=== PATIENT | male | born 1935 | race Caucasian/White ===

== ENCOUNTER 2018-03-25 04:57 | Inpatient (IN) | payer OTHER ==
[2018-02-28 15:03] VITALS: BMI 28.0
--- NOTE | 2018-02-28 15:43 | PAT Medication Instructions ---
Service Date Feb 28, 2018. Current Home Medication List Acetaminophen (Tylenol Arthritis Ext Rel), 650 MG PO Q8H PRN for Pain Amlodipine (Norvasc), 10 MG PO QAM Folic Acid (Folic Acid), 1 MG PO QAM Pantoprazole (Protonix), 40 MG PO QAM Medication Instructions For Your Scheduled Surgery - Hold the following medications the morning of surgery: Folic Acid (Folic Acid), 1 MG PO QAM - Take the following medications the morning of surgery with a sip of water: Acetaminophen (Tylenol Arthritis Ext Rel), 650 MG PO Q8H PRN for Pain (if needed , can be taken up to four hours before surgery) Amlodipine (Norvasc), 10 MG PO QAM Pantoprazole (Protonix), 40 MG PO QAM If you have any questions please call us at [phone] or [phone] or [phone]
[2018-02-28 16:33] LABS: BASO % 0.2 %; BASO ABS # 0.01 K/uL (0-0.2); EOS % 0.2 %; EOS ABS # 0.01 K/uL (0-0.5); HEMATOCRIT 42.9 % (42-52); IG# 0.02 K/uL (0.00-0.02); LYMPH % 24.7 %; LYMPH ABS # 1.47 K/uL (1.2-3.4); MEAN CELL VOLUME 94.3 fL (80-100); MEAN PLATELET VOLUME 10.9 fL (7.4-10.4); MONO ABS # 2.62 K/uL (0.11-0.59); NEUT % 30.6 %; NEUT ABS # 1.83 K/uL (1.4-6.5); PLATELET COUNT 161 K/uL (130-400); RED CELL DISTRIBUTION WIDTH CV 13.4 % (11.5-14.5); RED CELL DISTRIBUTION WIDTH SD 46.4 fL (36.4-46.3); WHITE BLOOD COUNT 5.96 K/uL (4.8-10.8)
--- NOTE | 2018-02-28 16:33 | DIAGNOSTIC IMAGING REPORT ---
CHEST 2 VIEWS ROUTINE CLINICAL HISTORY: Preoperative evaluation. COMPARISON STUDY: Chest radiograph October 04, 2014. FINDINGS: Lung volumes are normal. No pneumothorax or pleural effusion is noted. There is no evidence for pulmonary edema. No consolidation is present. Cardiomediastinal silhouette is normal. Appearance of the chest is unchanged. IMPRESSION: No acute cardiopulmonary findings. Electronically signed by: Guerrero Sandoval M.D. 02/28/2018 4:32 PM Dictated Date/Time: 02/28/2018 4:31 PM
[2018-02-28 16:40] LABS: CALCIUM 9.4 mg/dl (8.5-10.1); CREATININE 0.74 mg/dl (0.60-1.40)
[2018-02-28 16:45] LABS: PTT PATIENT 30.6 SECONDS (21.0-31.0)
--- NOTE | 2018-03-24 07:43 | HISTORY & PHYSICAL EXAMINATION ---
DATE OF ADMISSION: 03/25/2018 CHIEF COMPLAINT: Primary osteoarthritis of the left hip. HISTORY OF PRESENT ILLNESS: Teo is a very pleasant 82-year-old male who has been dealing with a several year history of chronic increasing left hip pain. X-rays and clinical examination were diagnostic for primary osteoarthritis of the left hip. After failing conservative treatment, he elected to proceed with a left total hip arthroplasty. PAST MEDICAL HISTORY: Significant for bleeding gastric ulcer which was treated conservatively and then with Protonix 2 years ago and hypertension. PAST SURGICAL HISTORY: Significant for a right total hip arthroplasty in 1974, cataracts, sinus surgery, appendectomy, and hernia repair. ALLERGIES: None. MEDICATIONS: Amlodipine 10 mg daily, Protonix 40 mg daily, folic acid 1 mg daily, Tylenol Arthritis. FAMILY HISTORY: Significant for colon cancer in both his father and his brother. SOCIAL HISTORY: He is and lives alone, but his daughter lives nearby to take care of him. He has 3 or more drinks a day. He still likes to remain active. REVIEW OF SYSTEMS: He complains mostly of left hip and groin pain. All other pertinent review of systems are negative. PHYSICAL EXAMINATION: GENERAL: He is awake, alert, and orient x3. He is no apparent distress. He is very pleasant. HEENT: Pupils are equal, round, and reactive to light. Extraocular motions are intact. Oral mucosa is pink and moist. HEART: The heart is regular rate per radial pulse. LUNGS: The lungs francis symmetrically bilaterally with no audible breath sounds. ABDOMEN: The abdomen is soft, nontender, and nondistended. MUSCULOSKELETAL: On physical examination of his hip, he is able to walk independently, but does have a limp. He has a lot of tenderness to palpation in the left groin. He has range of motion about 90 degrees of flexion, 10 degrees of internal rotation, 30 degrees of external rotation with severe pain with forced internal rotation of his hip. His leg lengths are equal. DIAGNOSTIC DATA: X-rays of the left hip do show advanced osteoarthritis with [id number] articulation, joint space narrowing, and osteophyte formation. IMPRESSION: Advanced osteoarthritis of the left hip. PLAN: We will proceed with a left total hip arthroplasty. We will use aspirin postoperatively for DVT prophylaxis. He will likely be discharged with [facility] home health after his hospital stay.
[2018-03-25] VITALS (9 sets, daily range): BP systolic 131–175; BP diastolic 53–84; PULSE 67–96; TEMP 36.4–36.5; O2SAT 91–97; Ht 177.8 cm; Wt 89.2 kg
[~2018-03-25] VITALS: Ht 177.8 cm; Wt 89.2 kg
[~2018-03-25 04:57] MED LIST: ACET1TAB84 PO; AMLO-114 PO; FLV1 PO; PANT40TA PO
[2018-03-25] MEDS ORDERED: LACTATED RINGER'S 1000ML 1,000 ML IV SCH (06:00)
[2018-03-25] MEDS ORDERED: LACTATED RINGER'S 1000ML IV SCH (06:00)
[2018-03-25] MEDS ORDERED: ROPIVACAINE 5MG/ML 30 ML 150 MG, BUPIVACAINE 0.5% MPF INJ 30 ML, EpINEphrine HCL INJ 0.... INFIL SCH ×8 (06:00)
[2018-03-25] MEDS ORDERED: FAMOTIDINE 20 MG TAB PO SCH (06:00)
[2018-03-25] MEDS ORDERED: CEFAZOLIN 2000MG IV PUSH 15 ML IV SCH (06:00)
[2018-03-25] MEDS ORDERED: LACTATED RINGER'S 1000ML 500 ML IV SCH (06:00)
[2018-03-25] MEDS ORDERED: ACETAMINOPHEN 500 MG TAB PO SCH (06:00)
[2018-03-25] MEDS ORDERED: GABAPENTIN 300 MG CAP PO SCH (06:00)
[2018-03-25] MEDS ORDERED: MIDAZOLAM HCL 1 MG/ML 2ML VIAL ONE (06:27)
[2018-03-25] MEDS ORDERED: FENTANYL CITRATE INJ 50 MCG/1 ML 2 ML VIAL ONE (06:27)
[2018-03-25] MEDS ORDERED: BACITRACIN 50000 UNIT VIAL ONE (06:30)
[2018-03-25] MEDS: TRANEXAMIC ACID INJ 1,000 MG x 2 Bags IV SCH ×4 (06:30→06:33)
[2018-03-25] MEDS ORDERED: ORTHO JOINT ANESTHETIC ONE (06:30)
[2018-03-25] MEDS ORDERED: BUPIVACAINE 0.5 % 5 MG/1 ML PF 10ML VIAL ONE (06:32)
--- NOTE | 2018-03-25 06:44 | History & Physical Bridge Note ---
H&P Re-Evaluation Bridge Note: I have examined the patient, reviewed the History & Physical and in the interval since the performance of the History & Physical I have noted the following changes of clinical significance: No changes noted
[2018-03-25] MEDS ORDERED: PROPOFOL IV EMULSION 10 MG/ML 20 ML VIAL IV ONE ×2 (07:25→08:12)
--- NOTE | 2018-03-25 08:48 | DIAGNOSTIC IMAGING REPORT ---
L HIP UNILATERAL 1 VIEW HISTORY: 82 years-old Male LT ANTERIOR TOTAL status post left hip arthroplasty. Degenerative joint disease. COMPARISON: Left hip radiographs 01/26/2018 TECHNIQUE: 2 spot fluoroscopic images of the left hip were obtained utilizing 51.3 seconds fluoroscopy time FINDINGS: First image demonstrates interval resection of the left femoral head and neck. Prosthetic acetabular component appears to be in satisfactory alignment. Second image demonstrates placement of the femoral stem which is in satisfactory alignment without periprosthetic fracture. IMPRESSION: Left hip arthroplasty with satisfactory alignment. The above report was generated using voice recognition software. It may contain grammatical, syntax or spelling errors. Electronically signed by: Gerardo Triana M.D. 03/25/2018 8:47 AM Dictated Date/Time: 03/25/2018 8:46 AM
--- NOTE | 2018-03-25 08:58 | [facility] Post Operative Brief Note ---
Immediate Operative Summary Operative Date Mar 25, 2018. Pre-Operative Diagnosis Advanced Osteoarthritis Left Hip Post-Operative Diagnosis Advanced Osteoarthritis Left Hip Procedure(s) Performed Left Anterior Total Hip Arthroplasty--Uncemented Surgeon Dr. Collins Geothermal Powerplant Supervisor Surgeon(s) ABRIL Ramos Estimated Blood Loss 250 ML Findings Consistent with Post-Op Diagnosis Specimens A. Left Femoral Head Drains None Anesthesia Type Spinal MAC Complication(s) none Disposition Disposition: Recovery Room / PACU
[2018-03-25] MEDS ORDERED: MoRPHine SULFATE 2 MG/ML CARP IV PRN (09:00)
[2018-03-25] MEDS ORDERED: SOD PHOSPHATE/SOD BIPHOSPHATE ENEMA 132 ML BTL PR PRN (09:00)
[2018-03-25] MEDS ORDERED: ONDANSETRON INJ 2 MG/ML 2 ML VIAL IV PRN ×2 (09:00→09:30)
[2018-03-25] MEDS ORDERED: MAGNESIUM HYDROXIDE SUSP 30 ML UDC PO PRN (09:00)
[2018-03-25] MEDS ORDERED: BISACODYL 10 MG SUPP PR PRN (09:00)
[2018-03-25] MEDS ORDERED: METOCLOPRAMIDE HCL INJ 5 MG/ML 2 ML VIAL IV PRN (09:00)
--- NOTE | 2018-03-25 09:06 | OPERATIVE REPORT ---
DATE OF OPERATION: 03/25/2018 PREOPERATIVE DIAGNOSIS: Primary osteoarthritis of the left hip. POSTOPERATIVE DIAGNOSIS: Same. PROCEDURE: Left total hip arthroplasty. SURGEON: Dr. Adi Collins. SENIOR JAVA PROGRAMMER ANALYST: Juvencio Lovell PA-C, whose assistance was necessary for retraction and closure. ANESTHESIA: Spinal. COMPLICATIONS: None. CONDITION: Stable to PACU. INDICATIONS: Teo is a pleasant 82-year-old male who presented to my office with complaints of chronic left hip and groin pain. X-rays and clinical examination were diagnostic for primary osteoarthritis of the left hip. After failing conservative treatment, he elected to undergo a left total hip arthroplasty. OPERATION AND FINDINGS: On 03/25/2018, he arrived at [facility] for the above procedure. He was seen in preoperative holding area and the operative extremity was identified and signed. He was given a preoperative antibiotic and a spinal anesthetic. He was taken back to the operating room, laid on the table in supine position and given basic sedation. The left hip was brought out to a PURIST leg positioner. The left hip was then prepped and draped in sterile fashion. Time-out was done. The patient and operative extremity was properly identified. An anterior approach was used. Dissection was taken down through the fascia and the rectus was retracted medially and the tensor fascia was retracted laterally. The circumflex vessels were ligated. The capsule was incised and tagged for later repair. The femoral neck was exposed and the femoral neck was resected. The femoral head was then removed. The acetabulum was exposed. Time was spent doing a complete circumferential labral release. Sequential reaming up to a size 55 reamer was done. Final reamings were done under fluoroscopy to ensure appropriate version. A size 56 mm G7 cup was then impacted into place. A single 30 mm screw was placed, and a liner was then snapped into place. The proximal femur was then exposed. Sequential broaching up to a size 16 broach was done. A standard head and neck assembly was applied. The hip was then reduced. Fluoroscopic images showed appropriate sizing of the components. I think we could use a little bit more length. The hip was then dislocated. The broach was removed. The final size 16 standard offset Taperloc stem was then impacted into place. A size 40 ceramic head with a +3 neck was then impacted into place. The hip was then reduced. Final fluoroscopic images showed anatomic alignment and sizing of the components. The surrounding soft tissues were injected with 100 mL of an orthopedic pain control cocktail. The wound was irrigated with 3 liters normal saline solution with bacitracin. The capsule was then closed with #1 Vicryl suture. Fascia was closed with #1 PDS suture. Skin was closed with 2-0 Vicryl and clovis. A small Prevena VAC dressing was placed. He was then transferred to a hospital bed and taken to the postanesthesia care unit in stable condition. He tolerated the procedure well. IMPLANTS USED: I used a Biomet Taperloc total hip arthroplasty system with a size 16 standard offset pressfit Taperloc stem, a size 56 mm G7 cup with a single 30 mm screw, an E1 neutral poly liner and a size 40 ceramic head with a +3 neck. I attest to the content of the Intraoperative Record and any orders documented therein. Any exception s are noted below.
--- NOTE | 2018-03-25 09:29 | Anesthesiology Progress Note ---
Anesthesia Post Op Note Date & Time Mar 25, 2018 at 09:29 Vital Signs Pain Intensity: 0 Vital Signs Past 12 Hours Date Time Temp Pulse Resp B/P (MAP) Pulse Ox O2 Delivery O2 Flow Rate FiO2 03/25/18 09:25 36.4 98 Nasal Cannula 2 03/25/18 09:18 73 19 03/25/18 09:18 78 19 99 03/25/18 09:17 112/68 03/25/18 09:13 71 24 03/25/18 09:13 79 24 93 03/25/18 09:11 125/63 03/25/18 09:08 74 22 95 03/25/18 09:08 74 22 03/25/18 09:07 73 22 94 03/25/18 09:07 71 22 03/25/18 09:06 134/68 03/25/18 09:02 74 24 95 03/25/18 09:02 69 24 03/25/18 09:01 130/64 03/25/18 08:57 70 22 95 03/25/18 08:57 69 22 03/25/18 08:56 136/71 03/25/18 08:53 126/62 03/25/18 08:52 36.9 77 13 126/82 96 Nasal Cannula 2 03/25/18 08:52 72 94 03/25/18 08:52 72 03/25/18 05:35 36.4 96 18 166/80 97 Room Air Notes Mental Status: alert / awake / arousable, participated in evaluation Pt Amnestic to Procedure: Yes Nausea / Vomiting: adequately controlled Pain: adequately controlled Airway Patency, RR, SpO2: stable & adequate BP & HR: stable & adequate Hydration State: stable & adequate Anesthetic Complications: no major complications apparent
[2018-03-25] MEDS ORDERED: EpHEDrine SULFATE INJ 50 MG/ML AMP IV PRN (09:30)
[2018-03-25] MEDS ORDERED: PHENYLEPHRINE 100MCG/ML 5ML SYR IV PRN (09:30)
[2018-03-25] MEDS ORDERED: ATROPINE SULFATE 0.1 MG/ML 5ML SYR IV PRN (09:30)
[2018-03-25] MEDS ORDERED: HYDROmorphone INJ 2 MG/ML SYR/VIAL IV PRN (09:30)
--- NOTE | 2018-03-25 10:11 | DIAGNOSTIC IMAGING REPORT ---
PELVIS AND LEFT HIP RADIOGRAPHS CLINICAL HISTORY: Postoperative evaluation. COMPARISON: Pelvis and left hip radiographs January 26, 2018. FINDINGS: Alignment of the total left hip arthroplasty is anatomic. There is an acetabular screw. Skin clovis are present. There is no fracture or unexpected radiopaque foreign body. A previous right hip arthroplasty is noted. IMPRESSION: Expected findings following total left hip arthroplasty. Electronically signed by: Guerrero Sandoval M.D. 03/25/2018 10:10 AM Dictated Date/Time: 03/25/2018 10:07 AM
[2018-03-25] MEDS: KETOROLAC TROMETHAMINE 15 MG/ML VIAL IV. SCH ×3 (12:05→23:53)
[2018-03-25] MEDS: ACETAMINOPHEN IV 1,000 MG in EMPTY BAG 0 ML IV SCH ×2 (13:44→21:35)
[2018-03-25] MEDS: CEFAZOLIN IV 2,000 MG in SYRINGE 0 ML IV SCH ×2 (14:36→22:30)
[2018-03-25] MEDS: SODIUM CHLORIDE 0.9% 1000ML 1,000 ML IV SCH (18:02)
[2018-03-25] MEDS ORDERED: NURSING DECISION MEDICATION ORDER SCH (19:15)
[2018-03-25] MEDS: ASPIRIN 325 MG ECTAB PO SCH (20:55)
[2018-03-25] MEDS: SENNA 8.6 MG TAB PO SCH (20:55)
[2018-03-25] MEDS: DOCUSATE SODIUM 100 MG CAP PO SCH (20:55)
[2018-03-25] MEDS: OXYCODONE HCL IR 5 MG TAB (IMMEDIATE RELEASE) PO PRN (22:38)
[2018-03-26 03:30] VITALS: BP 132/65; PULSE 81; TEMP 36.6; O2SAT 90
[2018-03-26] MEDS: SODIUM CHLORIDE 0.9% 1000ML 1,000 ML IV SCH (03:56)
[2018-03-26] MEDS: KETOROLAC TROMETHAMINE 15 MG/ML VIAL IV. SCH ×3 (05:30→18:08)
[2018-03-26] MEDS: ACETAMINOPHEN IV 1,000 MG in EMPTY BAG 0 ML IV SCH (05:30)
[2018-03-26 06:27] LABS: HEMATOCRIT 37.7 % (42-52); MEAN CELL VOLUME 94.3 fL (80-100); MEAN CORPUSCULAR HEMOGLOBIN 32.5 pg (25-34); MEAN CORPUSCULAR HGB CONC 34.5 g/dl (32-36); MEAN PLATELET VOLUME 10.8 fL (7.4-10.4); PLATELET COUNT 111 K/uL (130-400); RED CELL DISTRIBUTION WIDTH SD 44.7 fL (36.4-46.3); WHITE BLOOD COUNT 11.25 K/uL (4.8-10.8)
[2018-03-26 06:53] LABS: CALCIUM 8.2 mg/dl (8.5-10.1); CREATININE 0.78 mg/dl (0.60-1.40); POTASSIUM 3.5 mmol/L (3.5-5.1)
[2018-03-26 07:06] LABS: IG# 0.05 K/uL (0.00-0.02); LYMPH % 8.1 %; LYMPH ABS # 0.91 K/uL (1.2-3.4); MONO % 44.4 %; NEUT % 47.1 %; NEUT ABS # 5.29 K/uL (1.4-6.5)
[2018-03-26 07:10] VITALS: BP 121/66; PULSE 74; TEMP 37; O2SAT 92
[2018-03-26] MEDS ORDERED: ASPEC325 PO (08:45)
[2018-03-26] MEDS ORDERED: RXC5 PO (08:45)
--- NOTE | 2018-03-26 08:46 | Discharge Instructions ---
Discharge Instructions Date of Service Mar 26, 2018. Admission Reason for Admission: Left Hip Degenerative Joint Disease Discharge Discharge Diagnosis / Problem: Left Total Hip Discharge Goals Goal(s): Decrease discomfort, Improve function Activity Recommendations Activity Limitations: as noted below . Instructions / Follow-Up Instructions / Follow-Up Activity and Therapy Recommendations: * If you are using [facility] then Physical Therapy will be provided until they feel you are ready to start Outpatient Physical Therapy. If you are not using a Home Health agency then Outpatient Physical Therapy should start about 3-5 days from your day of surgery. Therapy will last about 3-6 weeks * You were shown a series of exercises in the hospital. Do these exercises three times each day including the exercises you were shown in physical therapy. * Get up and walk several times each day.~ For the first four weeks, try not to stand or walk for more than one hour at a time. If you do stand or walk for more than one hour, you will not hurt anything, but your leg will likely swell.~ ~ * As you feel comfortable, you may change from the walker or crutches to a cane and~then to independent walking. Medications: * Narcotic You will likely be sent home from the hospital with a prescription for the narcotic pain medication that worked best throughout your stay. * Aspirin Most patients will be required to take Aspirin 325mg twice a day for 6 weeks after surgery. This is obtained [id number] and a prescription is not necessary. * Other medications may be prescribed for specific circumstances. If you have any questions, please call the office at . * Resume previous home medications unless otherwise instructed TEDs/Elastic Stockings: The white elastic stockings help limit swelling and prevent blood clots from forming in your legs. The more you wear them, the more they work. Wear them for six weeks. Dressing Care: You will likely have a purple VAC dressing after surgery. This dressing will keep the incision dry and promote early healing. After about 8 days the batteries will wear out and the VAC will lose suction. Simply remove the dressing at that time and throw everything away, including the small suction machine. Then, you may leave the clovis open to air or cover them with a dry dressing so they do not rub on your pants. The clovis will be removed at your 2 week follow-up appointment. Showering: You may shower immediately with the purple VAC dressing. Let the shower spray hit your opposite side and slowly pat the plastic dry. Do not soak the dressing. After the dressing is removed you may shower normally with the clovis exposed. Let soapy water run over the clovis and pat them dry. Things To Watch For: * Drainage from the incision site that occurs more than one week after your surgery. * Increased redness at the incision site. * Fever above 102 degrees Fahrenheit. * Unusual chest pain or shortness of breath. * Call [facility] at with any of the above problems Follow-Up Visit: Follow-up with Dr. Collins 2 weeks after your day of surgery. An appointment was probably scheduled when you signed-up for surgery in the office. If you have any questions call Office Instructions: More detailed instructions as well as Frequently Asked Questions were provided in a folder by our office when you signed-up for surgery. Please review these instructions when you get home. If you have any further questions or concerns, please feel free to call the office at [phone] Current Hospital Diet Patient's current hospital diet: Regular Diet Discharge Diet Recommended Diet: Regular Diet Procedures Procedures Performed: Left Anterior Total Hip Arthroplasty--Uncemented Pending Studies Studies pending at discharge: no Medical Emergencies . Who to Call and When: Medical Emergencies: If at any time you feel your situation is an emergency, please call [phone] immediately. . Non-Emergent Contact Non-Emergency issues call your: Surgeon Call Non-Emergent contact if: wound has increased drainage, wound has increased redness . "Provider Documentation" section prepared by Adi Collins. .
[2018-03-26] MEDS: ASPIRIN 325 MG ECTAB PO SCH ×2 (09:25→21:00)
[2018-03-26] MEDS: PANTOprazole SOD 40 MG TAB PO SCH (09:25)
[2018-03-26] MEDS: DOCUSATE SODIUM 100 MG CAP PO SCH ×2 (09:25→21:00)
[2018-03-26] MEDS: AMLODIPINE BESYLATE 5 MG TAB PO SCH (09:25)
[2018-03-26] MEDS: MULTIVITAMIN TAB PO SCH (09:26)
[2018-03-26] MEDS: OXYCODONE HCL IR 5 MG TAB (IMMEDIATE RELEASE) PO PRN ×2 (09:27→20:59)
--- NOTE | 2018-03-26 09:27 | PROGRESS NOTE ---
DATE: 03/26/2018 CHIEF COMPLAINT: Status post left total hip arthroplasty postop day #1. PROGRESS: Teo was seen and examined at bedside today. Overall, he is doing very well. He has already been up and ambulating. He was sitting at bedside eating breakfast. He has very little pain in his hip. No complaints. PHYSICAL EXAMINATION: The Prevena VAC dressing is to suction. His leg lengths are equal. He has active dorsiflexion and plantarflexion of his left ankle and sensation is intact throughout. DATA: He has an H and H today of 13.0 and 37.7. His glucose is 102. His vital signs are all stable on room air and he is voiding on his own. X-rays postoperatively of the left hip showed the prosthesis to be in anatomic alignment without any evidence of fracture, dislocation, or loosening. IMPRESSION: Status post left total hip arthroplasty postop day #1. PLAN: At this point, he is doing well. He will be seen by physical therapy today. We will make sure his pain is okay throughout the day today. We will likely discharge him to home tomorrow morning.
[2018-03-26 15:11] VITALS: BP 137/72; PULSE 82; TEMP 36.6; O2SAT 93
[2018-03-26] MEDS: SENNA 8.6 MG TAB PO SCH (21:02)
[2018-03-26 22:55] VITALS: BP 142/74; PULSE 97; TEMP 37.2; O2SAT 92
[2018-03-26 23:30] VITALS: O2SAT 92
[2018-03-27] MEDS: KETOROLAC TROMETHAMINE 15 MG/ML VIAL IV. SCH ×2 (00:04→05:47)
[2018-03-27 07:30] VITALS: BP 150/79; PULSE 99; TEMP 36.9; O2SAT 91
[2018-03-27] MEDS: DOCUSATE SODIUM 100 MG CAP PO SCH (09:00)
[2018-03-27] MEDS: MULTIVITAMIN TAB PO SCH (09:00)
[2018-03-27] MEDS: PANTOprazole SOD 40 MG TAB PO SCH (09:00)
[2018-03-27] MEDS: ASPIRIN 325 MG ECTAB PO SCH (09:05)
[2018-03-27] MEDS: AMLODIPINE BESYLATE 5 MG TAB PO SCH (09:06)
--- NOTE | 2018-03-27 10:15 | PROGRESS NOTE ---
DATE: 03/27/2018 CHIEF COMPLAINT: Status post left total hip arthroplasty, postop day #2. PROGRESS: Teo was seen and examined at bedside today. Overall, he is doing fairly well. He has had a vomiting episode this morning. He did not eat his breakfast, but overall he says he feels fine. He does not have any stomach issues. He has been passing gas. His hip is doing very well. He was able to ambulate well yesterday with physical therapy, has no other complaints. PHYSICAL EXAMINATION: LEFT HIP: The Prevena VAC dressing is to suction. His leg lengths are equal. He has active dorsiflexion, plantar flexion of his left ankle and sensation is intact throughout. IMPRESSION: Status post left total hip arthroplasty, postop day #2. PLAN: At this point, he is doing well and happy with his progress. We will see if we can get him to eat anything later this morning or some lunch. As long as he is able to eat a little bit of something and keep it down, I feel safe discharging him to home.
--- NOTE | 2018-03-27 10:36 | DISCHARGE SUMMARY ---
DISCHARGE DIAGNOSIS: Primary osteoarthritis of the left hip. PROCEDURE: Left total hip arthroplasty on 03/25/[address] Adi Collins. DISCHARGE INSTRUCTIONS: 1. Aspirin 325 mg twice a day for 6 weeks. 2. Oxycodone 5-10 mg every 4 hours as needed for pain. 3. GIORGI hose stockings for 6 weeks. 4. Norvasc 10 mg daily. 5. Folic acid 1 mg daily. 6. Protonix 40 mg daily. 7. Prevena VAC dressing for 8 days. 8. Follow up with Dr. Collins in 2 weeks. 9. Call the office of Dr. Collins with any questions or concerns. HOSPITAL COURSE: Teo is a pleasant 82-year-old male who presented to my office with chronic increasing left hip pain. X-rays and clinical examination were diagnostic for primary osteoarthritis of the left hip. After failing conservative treatment, he elected to undergo a left total hip arthroplasty. On 03/25/2018, he arrived at [facility] and underwent a left hip replacement without complication. He had a spinal anesthetic. Postoperatively, he was discharged to general orthopedic floor. He was started on aspirin for DVT prophylaxis. His hospital course was uneventful. On postop day #1, his H and H was stable at 13.0 and 37.7. He was able to get up and ambulate well with physical therapy. His pain was relatively well controlled. On postop day #2, he continued to do fairly well. He did have a vomiting episode in the morning but he was not having any other stomach pains or symptoms. He was seen again by physical therapy and subsequently discharged to home with [facility] with the above instructions.
[2018-03-27 11:40] VITALS: BP 150/79; PULSE 99; TEMP 36.9; O2SAT 91
== END 2018-03-27 12:00 | disposition home health service (06) | DRG 470 ==
LOC: C.ACU 04:57 → C.3E 06:30 → ENRESERV 09:45
PROVIDERS: ADMIT Orthopaedic Surgery; ATTEND Orthopaedic Surgery
PROC: 0SRB04A Replacement of Left Hip Joint with Ceramic on Polyethylene Synthetic Substitute, Uncemented, Open Approach (ICD-10-PCS; principal; 2018-03-25 07:00)
DX: M16.12 Unilateral primary osteoarthritis, left hip (principal); I10 Essential (primary) hypertension; Z79.899 Other long term (current) drug therapy; Z96.641 Presence of right artificial hip joint; Z87.11 Personal history of peptic ulcer disease; Z80.0 Family history of malignant neoplasm of digestive organs

== ENCOUNTER 2020-04-03 08:21 | Inpatient (IN) ==
[2020-04-03] MEDS ORDERED: CEFEPIME 2,000 MG/12.5 ML VIAL IV STA (08:47)
--- NOTE | 2020-04-03 08:51 | Emergency Department Note ---
History of Present Illness General Chief Complaint: Shortness of Breath/Dyspnea Stated Complaint: SOB, WEAKNESS Time Seen by Provider: 04/03/20 08:29 Source: patient Mode of arrival: wheelchair Limitations: no limitations History of Present Illness Provider Complaint: shortness of breath and cough Onset (ago): week(s) (2) Severity: moderate Consistency/Duration: + constant Relieved By: + nothing Exacerbated By: + exertion Context: + recent illness Known history of: other (Lifelong smoker but no diagnosis of COPD) Associated symptoms: + fever, + cough and + nausea/vomiting Treatment prior to arrival: none HPI Narrative: This is an 85-year-old male who presents to the ED with a chief complaint of decreased appetite, nausea, vomiting at least 2-3 times a day for the past 2 weeks, cough that is productive of yellow sputum for 2 weeks, shortness of breath that is worse with exertion, intermittent fevers and severe weakness. The patient denies any diarrhea or abdominal pains. He came to the hospital today for evaluation. He states that he did have COVID testing 2 weeks ago. No known COVID contacts. Symptoms are moderate. Related Data Home oxygen amount: none Home Medications Home Medications Medication Instructions Recorded Confirmed Type folic acid 1 mg PO DAILY 12/04/18 04/03/20 History pantoprazole 40 mg PO DAILY 12/04/18 04/03/20 History amlodipine 10 mg PO DAILY 04/03/20 04/03/20 History Allergies Allergy/AdvReac Type Severity Reaction Status Date / Time No Known Allergies Allergy Verified 04/03/20 09:50 Past Med/Surg History Medical History (Updated 04/03/20 @ 10:41 by Yaniv Cyr DO) Cirrhosis Seen on CT scan of abd/pelvis 12/04/18 Has not had any GI work up as outpt according to [facility] History of GI bleed gastritis and jejunal ulcer dx with capsule endoscopy 2013 associated with iron deficiency anemia HLD (hyperlipidemia) HTN (hypertension) Osteoarthritis Transient arterial retinal occlusion Surgical History (Updated 04/03/20 @ 10:41 by Maritza Dunn PA-C) History of appendectomy History of bilateral total hip arthroplasty History of cholecystectomy 11/2018 History of colonoscopy History of esophagogastroduodenoscopy (EGD) History of nasal polypectomy Family History (Updated 04/03/20 @ 10:34 by Maritza Dunn PA-C) Father Colorectal cancer Brother Colorectal cancer Heart disease History of coronary artery bypass graft Mother Bone cancer Social History (Updated 04/03/20 @ 10:33 by Maritza Dunn PA-C) marital status: / Feels Safe at Home: Yes Smoking Status: Former smoker Hx Alcohol Use: Yes Alcohol Intake Frequency: Rarely Review of Systems A total of 10 systems reviewed and were otherwise negative Physical Exam Vital Signs: Vital Signs - 24 hr 04/03/20 08:29 04/03/20 08:48 Temperature 37.2 C Temperature Source Oral Pulse Rate 91 H Respiratory Rate 30 H Respiratory Effort / Characteristics Accessory Muscle U se Short of Breath SOB on Exertion Respiratory Patter n Tachypnea Blood Pressure 109/73 Blood Pressure Shi n 85 Pulse Oximetry 88 L Oxygen Delivery Me thod Room Air Nasal Cannula Oxygen Flow Rate 4 Sepsis Recent Feve r Within 48 Hours Yes Sepsis New/Unexpla ined Change in Men angela Status No Sepsis Action Take n by Nursing No Action Required Physical Exam: CONSTITUTIONAL/VITAL SIGNS: Reviewed / noted above. GENERAL: Non-toxic in appearance. Generalized weakness. INTEGUMENTARY: Warm, dry, and [place]. HEAD: Normocephalic. EYES: without scleral icterus or trauma. ENT/OROPHARYNX: clear and moist. LYMPHADENOPATHY/NECK: Is supple without lymphadenopathy or meningismus. RESPIRATORY: Lungs: Rhonchi noted in the left base. Tachypneic. Mild increased work of breathing. CARDIOVASCULAR: Regular rate and rhythm. GI/ABDOMEN: Soft and nontender. No organomegaly or pulsatile mass. No rebound or guarding. Normal bowel sounds. EXTREMITIES: Warm and well perfused. BACK: No CVA tenderness. NEUROLOGICAL: Intact without focal deficits. PSYCHIATRIC: normal affect. MUSCULOSKELETAL: Normally developed with good muscle tone. TRIAGE NURSING DOCUMENTATION REVIEWED. Medical Decision Making Differential Diagnosis The differential was considered includes acute myocardial infarction, acute coronary syndrome, myocarditis, pericarditis, pericardial effusions /tamponad, esophageal perforation, pulmonary embolism, pneumonia, pneumothorax, cardiomyopathy, congestive heart, anemia , COPD/asthma exacerbation. Medical Records Attestation: I reviewed the patient's medical records. Home Medications Current Medication List: was personally reviewed by me Laboratory Data Attestation: I reviewed the patient's lab results. Result diagrams: 04/03/20 09:06 04/03/20 09:06 Lab Results 04/03/20 04/03/20 04/03/20 Range/Units 09:06 09:06 09:06 WBC 29.20 H (4.8-10.8) K/uL RBC 4.62 L (4.7-6.1) M/uL Hgb 14.8 (14.0-18.0) g/dL Hct 43.3 (42-52) % MCV 93.7 (80-100) fL MCH 32.0 (25-34) pg MCHC 34.2 (32-36) g/dL RDW Std Deviation 48.8 H (36.4-46.3) fL RDW Coeff of Benito 14.5 (11.5-14.5) % Plt Count 67 L (130-400) K/uL Absolute Nucleated RBC 0.09 H (0-0) K/uL Nucleated RBC % (auto) 0.3 % Neutrophils % (Manual) 35.0 % Lymphocytes % (Manual) 11.0 % Monocytes % (Manual) 31.0 % Metamyelocytes % (Man) 1.0 % Blast Cells % (Manual) 22.0 % Neutrophils # (Manual) 10.22 H (1.4-6.5) K/uL Total Absolute Neuts 10.22 H (1.4-6.5) K/uL Lymphocytes # (Manual) 3.21 (1.2-3.4) K/uL Total Abs Lymphocytes 3.21 (1.2-3.4) K/uL Monocytes # (Manual) 9.05 H (0.11-0.59) K/uL Metamyelocytes # (Man) 0.29 H (0-0) K/uL Blast Cells # (Man) 6.42 H (0-0) K/uL Hypogranular Neuts 2+ Giant Platelets 1+ PT 15.8 H (9.0-12.0) Seconds INR 1.5 H (0.9-1.1) Sodium 134 L (136-145) mmol/L Potassium 2.7 L (3.5-5.1) mmol/L Chloride 98 (98-107) mmol/L Carbon Dioxide 22 (21-32) mmol/L Anion Gap 14.0 H (3-11) BUN 18 (7-18) mg/dl Creatinine 1.63 H (0.6-1.4) mg/dl Est Cr Clr Drug Dosing Not Reportable Est GFR ( Amer) 44.2 Est GFR (Non-Af Amer) 38.1 BUN/Creatinine Ratio 10.8 (10-20) Glucose 109 H (70-99) mg/dl Lactate Calcium 8.7 (8.5-10.1) mg/dl Total Bilirubin 1.6 H (0.2-1) mg/dl AST 42 H (15-37) U/L ALT 14 (12-78) U/L Alkaline Phosphatase 109 (45-117) U/L Troponin I < 0.015 (0-0.045) ng/ml C-Reactive Protein 18.20 H (0-0.29) mg/dl Total Protein 7.4 (6.4-8.2) gm/dl Albumin 3.0 L (3.4-5.0) gm/dl Globulin 4.4 H (2.5-4.0) gm/dl Albumin/Globulin Ratio 0.7 L (0.9-2) Influenza Type A (PCR) (Neg) Influenza Type B (PCR) (Neg) 04/03/20 04/03/20 Range/Units 09:06 09:07 WBC (4.8-10.8) K/uL RBC (4.7-6.1) M/uL Hgb (14.0-18.0) g/dL Hct (42-52) % MCV (80-100) fL MCH (25-34) pg MCHC (32-36) g/dL RDW Std Deviation (36.4-46.3) fL RDW Coeff of Benito (11.5-14.5) % Plt Count (130-400) K/uL Absolute Nucleated RBC (0-0) K/uL Nucleated RBC % (auto) % Neutrophils % (Manual) % Lymphocytes % (Manual) % Monocytes % (Manual) % Metamyelocytes % (Man) % Blast Cells % (Manual) % Neutrophils # (Manual) (1.4-6.5) K/uL Total Absolute Neuts (1.4-6.5) K/uL Lymphocytes # (Manual) (1.2-3.4) K/uL Total Abs Lymphocytes (1.2-3.4) K/uL Monocytes # (Manual) (0.11-0.59) K/uL Metamyelocytes # (Man) (0-0) K/uL Blast Cells # (Man) (0-0) K/uL Hypogranular Neuts Giant Platelets PT (9.0-12.0) Seconds INR (0.9-1.1) Sodium (136-145) mmol/L Potassium (3.5-5.1) mmol/L Chloride (98-107) mmol/L Carbon Dioxide (21-32) mmol/L Anion Gap (3-11) BUN (7-18) mg/dl Creatinine (0.6-1.4) mg/dl Est Cr Clr Drug Dosing Est GFR ( Amer) Est GFR (Non-Af Amer) BUN/Creatinine Ratio (10-20) Glucose (70-99) mg/dl Lactate TNP Calcium (8.5-10.1) mg/dl Total Bilirubin (0.2-1) mg/dl AST (15-37) U/L ALT (12-78) U/L Alkaline Phosphatase (45-117) U/L Troponin I (0-0.045) ng/ml C-Reactive Protein (0-0.29) mg/dl Total Protein (6.4-8.2) gm/dl Albumin (3.4-5.0) gm/dl Globulin (2.5-4.0) gm/dl Albumin/Globulin Ratio (0.9-2) Influenza Type A (PCR) Neg for Influ A (Neg) Influenza Type B (PCR) Neg for Influ B (Neg) Imaging Data Attestation: I personally reviewed and interpreted this imaging study as follows: My Impression: Patchy infiltrates in the lower lobes. Radiologist's Impression: Chest x-ray: IMPRESSION: 1. Findings suggest mild volume overload. 2. Minimal added density at the lung bases with patchy irregular linear opacities could be due to bibasilar atelectasis, aspiration, or developing infiltrates. 3. Bronchial wall cuffing could be due to congestive change or airway thickening/bronchitis. ECG Data Attestation: I personally reviewed and interpreted this ECG as follows: (Sinus rhythm at a rate of 86. Second degree type [address]BBB. No [address] elevation. PVC.) Blood Pressure Blood Pressure Findings: Normal blood pressure MDM Narrative This is an 85-year-old male who presents to the ED with a chief complaint of decreased appetite, nausea, vomiting at least 2-3 times a day for the past 2 weeks, cough that is productive of yellow sputum for 2 weeks, shortness of breath that is worse with exertion, intermittent fevers and severe weakness. The patient denies any diarrhea or abdominal pains. He came to the hospital today for evaluation. He states that he did have COVID testing 2 weeks ago. No known COVID contacts. Symptoms are moderate. The patient's vital signs reveal hypoxia at 88% saturations on room air. He does not use home oxygen. He appears generally weak. He has some rhonchi in the left base. The patient appears to be tachypneic and this is worsened by minimal exertion, such as getting in the bed. His abdomen is soft and nontender. The rest of his exam was unremarkable. He did cough up some yellow sputum prior to me entering the room and I saw it on the floor. He states that this is been going on for some time. The patient's white blood cell count is 29,000. INR is 1.5. Potassium is 2.7. Creatinine is 1.63. Bilirubin is 1.6. Troponin was negative. CRP is elevated at 18. Flu swab was negative. EKG shows a sinus rhythm with either a first-degree AV block or a type I second-degree block. There is also a PVC. Poor baseline with artifact. The patient was treated with IV cefepime and IV fluids. Chest x-ray by radiology suggest some fluid overload although clinically this is not apparent. There also may be some bilateral lower lobe infiltrates. His potassium is low and he was given oral as well as some IV potassium. His oxygen saturations were 88%. He is coughing up yellow sputum. His symptoms are most consistent with a pneumonia. I spoke with the hospitalist, who will see the patient for further inpatient evaluation and care. COVID testing has been sent via outpatient lab. I did speak with Dr. Camejo about this testing as well. He agrees with the outpatient test. He feels isolation would be prudent till that test comes back which has been around 24 hours. Impression & Plan Pneumonia of both lower lobes, Hypoxia, Acute hypokalemia Discharge Plan Visit Data Chief Complaint: Shortness of Breath/Dyspnea Stated Complaint: SOB, WEAKNESS ED Provider: Yaniv Cyr Discharge Problem: Pneumonia of both lower lobes, Hypoxia, Acute hypokalemia Patient Disposition: Being Evaluated by Hospitalist Condition: Fair Forms Stand Alone Forms: My [facility], Important Visit Information Prescriptions Prescriptions: No Action pantoprazole 40 mg Tablet,Delayed Release (Dr/Ec) 40 mg PO DAILY RF: 0 folic acid 1 mg Tablet 1 mg PO DAILY RF: 0 amlodipine 10 mg tablet 10 mg PO DAILY RF: 0 Referrals Referrals: Devi Smith PA-C [Primary Care Provider] -
[2020-04-03] MEDS ORDERED: SODIUM CHLORIDE 0.9% 1000ML 1,000 ML IV SCH (09:00)
[2020-04-03 09:30] LABS: INR 1.5 (0.9-1.1); Prothrombin Time 15.8 Seconds (9.0-12.0)
--- NOTE | 2020-04-03 09:37 | XRay Report ---
XR chest 1V portable CLINICAL HISTORY: 85 years-old Male presenting with cough, sats 88%, sob. TECHNIQUE: Portable upright AP view of the chest was obtained. COMPARISON: 12/04/2018. FINDINGS: Atherosclerosis of the aortic arch. Cardiac silhouette top normal in size. Mild a prominent pulmonary vasculature. Minimal added density at the lung bases with a few scattered linear irregular opacities . Bronchial wall thickening suspected. No large effusion or pneumothorax. A trace left pleural effusi on is difficult to exclude versus a prominent pericardial fat pad. Degenerative changes of the thorac ic spine. Upper abdomen normal. IMPRESSION: 1. Findings suggest mild volume overload. 2. Minimal added density at the lung bases with patchy irregular linear opacities could be due to bi basilar atelectasis, aspiration, or developing infiltrates. 3. Bronchial wall cuffing could be due to congestive change or airway thickening/bronchitis. ACT 112: Negative or not required by law. Electronically signed by: Dharmesh Alves M.D. 04/03/2020 9:36 AM
[2020-04-03 09:41] LABS: Aspartate Aminotransferase 42 U/L (15-37); BUN Creatinine Ratio 10.8 (10-20); Blood Urea Nitrogen 18 mg/dl (7-18); Calcium 8.7 mg/dl (8.5-10.1); Carbon Dioxide 22 mmol/L (21-32); Chloride 98 mmol/L (98-107); Est GFR (African American) 44.2; Est GFR (Non-African American) 38.1; Glucose 109 mg/dl (70-99); Potassium 2.7 mmol/L (3.5-5.1); Sodium 134 mmol/L (136-145)
[2020-04-03 09:46] LABS: Alanine Aminotransferase 14 U/L (12-78); Albumin Globulin Ratio 0.7 (0.9-2); Alkaline Phosphatase 109 U/L (45-117); Bilirubin,Total 1.6 mg/dl (0.2-1); Globulin 4.4 gm/dl (2.5-4.0); Total Protein 7.4 gm/dl (6.4-8.2); Troponin I < 0.015 ng/ml (0-0.045)
[2020-04-03 09:50] LABS: Hematocrit (blood only) 43.3 % (42-52); Hemoglobin 14.8 g/dL (14.0-18.0); Mean Corpuscular Hgb Conc 34.2 g/dL (32-36); Mean Corpuscular Volume 93.7 fL (80-100); Nucleated RBC # (auto) 0.09 K/uL (0-0); Nucleated RBC % (auto) 0.3 %; Platelet Count 67 K/uL (130-400); RDW Coefficient of Variation 14.5 % (11.5-14.5); RDW Standard Deviation 48.8 fL (36.4-46.3); Red Blood Count 4.62 M/uL (4.7-6.1)
[2020-04-03 10:24] LABS: ALC (manual) 3.21 K/uL (1.2-3.4); ANC (manual) 10.22 K/uL (1.4-6.5); Blast # (manual) 6.42 K/uL (0-0); Giant Platelets 1+; Hypogranular Neutrophils 2+; Lymphocytes # (manual) 3.21 K/uL (1.2-3.4); Metamyelocytes # (manual) 0.29 K/uL (0-0); Monocytes # (manual) 9.05 K/uL (0.11-0.59); Neutrophils # (manual) 10.22 K/uL (1.4-6.5)
[2020-04-03] MEDS ORDERED: POTASSIUM CHLORIDE / WTR 10 MEQ/100 ML PLCT IV ONE (10:34)
[2020-04-03] MEDS ORDERED: POTASSIUM CHLORIDE 10 MEQ TABCR PO STA (10:34)
--- NOTE | 2020-04-03 10:37 | History & Physical Report ---
Date of Service April 03, 2020 Assessment & Plan (1) Acute respiratory insufficiency: pulmonary congestion on xray along with questionable infiltrates. Cefepime started empirically for possible developing pneumonia in immunocompromised patient. Lasix 20IV given. Strict I/O. Echo ordered. Cont pulm support with oxygen supplementation and BIPAP. 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 With 22% monoblasts on peripheral smear concern for blast crisis. Patient has WBC 29K with elevated neutrophils but no left shift. Will continue cefepime in case neutrophils decline and patient becomes neutropenic, in light of intermittent fever. Cefepime will also empirically cover any developing pneumonia, although this is less likely. Procalcitonin pending. COVID-19 also less likely as he was just tested two weeks ago with these same symptoms and was negative. Repeat test pending per ER provider. Will obtain PTT and fibrinogen in light of new coagulopathy out of concern for develioping DIC. If fibrinogen is <150 will give cryoprecipitate. Will obtain uric acid, LDH and phos q8h to rule out tumor lysis syndrome and will empirically start him on renal dosed allopurinol, switching to rasburicase if positive. Although hydration would be important, for now he has acute respiratory insufficiency with evidence of pulmonary edema on CXR. He was given 1L of NSS on arrival to the ER, but is not improved. He was given Lasix 20mg IV x one and will monitor clinical response closely. Ideally would prefer to transfer this patient to [facility] Hematology who are willing to take him. Need to stabilize/optimize his breathing prior to transfer. Trying to avoid intubation with some Lasix for now. Hyperviscosity with increased WBC also considered, but again, holding on further IV hydration until respiratory status improves. (3) Acute hypokalemia: Oral and IV supplementation given in ER prior to Lasix administration. This is likely related to vomiting per patient reports. Check Mg. (4) Acute diastolic heart failure: Lasix as above. Echo ordered, however, patient set to transfer (5) Cirrhosis: Seen on imaging in the past. Not worked up for this yet. (6) Coagulopathy: DIC ruled out with normal fibrinogen. Defer to [facility]emat[facility]. (7) DVT prophylaxis: SCDs-chemoprophy contraindicated in setting of thrombocytopenia. Full Code as discussed with the patient on admission. Dispo-transfer to ICU in [facility] with Hematology consulted. I reviewed the assessment and plan with the patient and his daughter by phone. All questions were answered. I discussed the case peripherally with the ICU physician, Dr. Camejo. I spent >30 minutes coordinating his care with the nursing staff, lab staff and transfer staff at [facility]. DO Eduard Schmidtduke [facility] Hospitalist History of Present Illness Chief Complaint: progressive dyspnea Primary Care Provider: Devi Smith PA-C 85 yo M presents with cough, shortness of breath, fatigue and fever, present over the past 4-5 weeks and worsening in the last two weeks despite a 7 day course of doxycycline and a short course of prednisone prior to that. Cough worse at night, and the patient reports that he cannot lie flat. He reports some swelling in his ankles and his abdomen which is diffusely tender. He has vascular congestion on his chest xray today and no h/o CAD or heart failure. Last echo was in 2010 with preserved EF at that time. He also reports some mucous production, and shortness of breath is more surrounding episodes of coughing. He reports nausea and vomiting stating he "can't keep anything down." Last food was a piece of pie last night that he threw up. He has a sore throat. He denies any sinus congestion, chest pain, diarrhea, blood per rectum, or other symptoms at this time. His INR is 1.5, PLT are 67, and WBC is 29K with 22% monoblasts and 31% monocytes on peripheral smear. The patient was tested for COVID-19 two weeks ago and was negative. I discussed the results of the smear with Hematology at [facility], who recommend transfer. Allergies Allergy/AdvReac Type Severity Reaction Status Date / Time No Known Allergies Allergy Verified 04/03/20 09:50 Home Medications Home Medications Medication Instructions Recorded Confirmed Type folic acid 1 mg PO DAILY 12/04/18 04/03/20 History pantoprazole 40 mg PO DAILY 12/04/18 04/03/20 History amlodipine 10 mg PO DAILY 04/03/20 04/03/20 History Past Med/Surg History Medical History Cirrhosis Seen on CT scan of abd/pelvis 1/6/19 Has not had any GI work up as outpt according to [facility] History of GI bleed gastritis and jejunal ulcer dx with capsule endoscopy 2013 associated with iron deficiency anemia HLD (hyperlipidemia) HTN (hypertension) Osteoarthritis Transient arterial retinal occlusion Surgical History History of appendectomy History of bilateral total hip arthroplasty History of cholecystectomy 11/2018 History of colonoscopy History of esophagogastroduodenoscopy (EGD) History of nasal polypectomy Family History Father Colorectal cancer Brother Colorectal cancer Heart disease History of coronary artery bypass graft Mother Bone cancer Social History Preferred Language: [place] Communication Ability: Effective Bow String Maker Required: No Beliefs That Will Affect Care: None marital status: / Current Living Situation: Alone Other Information That Helps Us Care for You: No Feels Safe at Home: Yes Safety Concerns: Feels Safe At This Time Smoking Status: Former smoker Tobacco Type: cigarettes ; Do You Dip or Chew Tobacco: No ; Smoking End Date: 2002 ; Second Hand Exposure: No ; Tobacco Cessation Education Requested by Patient: No Hx Alcohol Use: Yes Alcohol type: beer Alcohol Intake Frequency: Rarely Hx Substance Use: No Review of Systems Review of Systems: All systems reviewed & are unremarkable except as noted in Subjective Physical Exam Physical Exam: CONSTITUTIONAL: WNWD, vitals as above, generally well- appearing EYES: EOMI bilaterally, PERRL, normal conjunctivae, no scleral icterus ENT: external ear and nose normal, oropharynx clear with some erythema but no exudates. Mucous membranes moist. NECK: trachea midline, no lymphadenopathy RESPIRATORY: Crackles at bases bilaterally, no wheezing or rales. Increased respiratory effort and conversational dyspnea present. CARDIOVASCULAR: regular rate and rhythm, S1 and 2 heard without murmurs, gallops or rubs, no JVD, no peripheral edema CHEST: inspection of chest was normal GASTROINTESTINAL: soft, diffusely tender, no guarding or distension MUSCULOSKELETAL: strength 5/5 throughout, head is normocephalic and atraumatic SKIN: warm and dry NEUROLOGIC: No facial palsy, no dysarthria. CN 2-12 grossly intact, no sensory deficit, normal cognition, normal speech, no tremor, no gross focal deficits. PSYCHIATRIC: alert cooperative and oriented to person, place and time. Results & Data Results & Data ([facility]) Vital Signs (Past 12 Hours) Vital Signs Temp Pulse Resp BP Pulse Ox 04/03/20 08:29 37.2 C 91 H 30 H 109/73 88 L Laboratory Results Short CBC 04/03/20 Range/Units 09:06 WBC 29.20 H (4.8-10.8) K/uL Hgb 14.8 (14.0-18.0) g/dL Hct 43.3 (42-52) % Plt Count 67 L (130-400) K/uL BMP 04/03/20 09:06 Sodium 134 L Potassium 2.7 L Chloride 98 Carbon Dioxide 22 BUN 18 Creatinine 1.63 H Glucose 109 H Calcium 8.7 Cardiac Enzymes 04/03/20 Range/Units 09:06 Troponin I < 0.015 (0-0.045) ng/ml Liver Function 04/03/20 Range/Units 09:06 Total Bilirubin 1.6 H (0.2-1) mg/dl AST 42 H (15-37) U/L ALT 14 (12-78) U/L Alkaline Phosphatase 109 (45-117) U/L Albumin 3.0 L (3.4-5.0) gm/dl Diagnostic Findings XR chest 1V portable CLINICAL HISTORY: 85 years-old Male presenting with cough, sats 88%, sob. FINDINGS: Atherosclerosis of the aortic arch. Cardiac silhouette top normal in size. Mild a prominent pulmonary vasculature. Minimal added density at the lung bases with a few scattered linear irregular opacities. Bronchial wall thickening suspected. No large effusion or pneumothorax. A trace left pleural effusion is difficult to exclude versus a prominent pericardial fat pad. Degenerative changes of the thoracic spine. Upper abdomen normal. IMPRESSION: 1. Findings suggest mild volume overload. 2. Minimal added density at the lung bases with patchy irregular linear opacities could be due to bibasilar atelectasis, aspiration, or developing infiltrates. 3. Bronchial wall cuffing could be due to congestive change or airway thickening/bronchitis. Code Status & VTE Plan Code Status Full Code VTE Prophylaxis Plan VTE Prophylaxis will be ordered: Yes
[2020-04-03 10:38] LABS: Influenza A virus by PCR Neg for Influ A (Neg); Influenza B virus by PCR Neg for Influ B (Neg)
[2020-04-03] MEDS ORDERED: FUROSEMIDE 40 MG/4 ML VIAL IV STA (11:18)
[2020-04-03] MEDS ORDERED: HYDROXYUREA 500 MG CAP PO SCH (12:45)
[2020-04-03] MEDS ORDERED: allopurinoL 100 MG TAB PO SCH (12:45)
[2020-04-03] MEDS ORDERED: ACETAMINOPHEN 325 MG TAB PO PRN (13:42)
[2020-04-03] MEDS ORDERED: PROMETHAZINE HCL 25 MG SUPP PR PRN (13:42)
[2020-04-03] MEDS ORDERED: POLYETHYLENE (MIRALAX) 17 GM PACK PO PRN (13:42)
--- NOTE | 2020-04-03 14:19 | Electrocardiogram Report ---
Test Reason : Blood Pressure : / mmHG Vent. 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
[2020-04-03 14:20] LABS: Fibrinogen 327 mg/dl (184-400); Partial Thromboplastin Ratio 1.6; Partial Thromboplastin Time 44.9 Seconds (21.0-31.0)
[2020-04-03 14:25] LABS: Phosphorus 2.6 mg/dl (2.5-4.9); Uric Acid 11.9 mg/dl (2.6-7.2)
[2020-04-03] MEDS ORDERED: POTASSIUM CHLORIDE 20 MEQ TABCR PO STA (15:14)
[2020-04-03] MEDS: MAGNESIUM SULFATE / D5W 1 GM/100 ML BAG IV SCH ×4 (15:39→19:12)
[2020-04-03] MEDS: PATIENT'S HEIGHT AND/OR WEIGHT NEEDED SCH ×2 (16:17→17:08)
[2020-04-03] MEDS ORDERED: CEFEPIME 1,000 MG in SYRINGE 0 ML IV SCH (18:00)
--- NOTE | 2020-04-03 19:20 | Ultrasound Report ---
US venous doppler LE BI HISTORY: Pain. Edema. rule out dvt, +new malig, +hypox COMPARISON STUDY: None. FINDINGS: There is normal compressibility, flow, and augmentation within the bilateral lower extremit y deep venous systems. All deep venous structures are unremarkable. There is a short segment of superficial femoral arterial occlusion at its mid aspect. This demonstrat es partial collateral reconstitution distally IMPRESSION: No DVT within the right or left lower extremity. Focal compensated occlusion mid superficial femoral artery with collateral distal reconstitution. ACT 112: Negative or not required by law. The above report was generated using voice recognition software. It may contain grammatical, syntax or spelling errors. Electronically signed by: Dajuan Ordonez M.D. 04/03/2020 7:19 PM
--- NOTE | 2020-04-03 19:50 | Communication Note ---
Date of Service: April 03, 2020 TRANSFER SUMMARY 85 yo M presented to the ER with constitutional symptoms for the past 4-5 weeks including intermittent fevers, GI upset and occasional vomiting, severe fatigue and dyspnea with occasional coughing. He reported significant orthopnea, and with pulmonary congestion seen on CXR imaging he was given furosemide 20mg IV with good diuresis. This improved his tachypnea from 45 breaths per minute to around 35 breaths per minute. He was placed on BIPAP and clinically reported improvement after a couple of hours, but remained tachypneic. Cefepime was started empirically for questionable pneumonia, and was continued. As the questionable infiltrative vs atelectasis vs edema changes seen on xray were not as impressive as the tachypnea, COVID-19 and PE were entertained as alternative contributors. COVID-19 was ruled out for a second time now in two weeks. He did have lower leg dopplers performed with no evidence of DVT, but did not have a chance to have chest imaging prior to transfer. Therefore, PE may still be a consideration for the receiving facility. Initial CBC revealed an elevated WBC count of 29K and manual peripheral smear reviewed by pathology revealed 22% monoblasts with 31% monocytes. This was suggestive of CMML, and flow cytometry and further studies were pending at the time of discharge. Additional labwork included uric acid and LDH which were elevated. In this clinical setting, this was concerning for a potentially developing tumor lysis syndrome. Rasburicase is not offered at this facility, however, he was treated with renally-dosed allopurinol. He was also given hydroxyurea to treat any hyperviscosity from the elevated white blood cell count. He was found to be in acute kidney injury, however, in the setting of tachypnea and pulmonary congestion, additional fluids were avoided. I did review this possibility peripherally with the grinder dresser public relations intern and the decision was made to avoid intubation while trying other conservative measures. If his respiratory status does not improve, he may require temporary intubation for acute respiratory failure. 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 His daughter, Katharine Munson, was updated and all questions were answered. Current Inpatient Medications Acetaminophen (Tylenol) 650 mg PO Q4H PRN PRN Reason: Pain or Fever Stop: 05/03/20 13:41 Allopurinol (Zyloprim) 200 mg PO Q12@ [facility] Stop: 05/03/20 12:44 Last Admin: 04/03/20 15:38 Dose: 200 mg Documented by: Hydroxyurea (Hydrea) 1,000 mg PO Q12@799,1999 [facility] Stop: 05/03/20 12:44 Last Admin: 04/03/20 15:38 Dose: 1,000 mg Documented by: Cefepime HCl 2,000 mg/ Syringe 20 mls @ 5 mls/min IV Q12@799,1999 [facility]; Protocol Stop: 04/10/20 19:59 Polyethylene Glycol (Miralax Powder Packet) 17 gm PO DAILY PRN PRN Reason: Constipation Stop: 05/03/20 13:41 Promethazine HCl (Phenergan) 25 mg OH Q6H PRN PRN Reason: Nausea And Vomiting Stop: 05/03/20 13:41
[2020-04-03] MEDS ORDERED: CEFEPIME 2,000 MG in SYRINGE 7.5 ML IV SCH (20:00)
--- NOTE | 2020-04-03 20:08 | Discharge Summary ---
Date of Service April 03, 2020 Admission HPI Per Admitting Provider 85 yo M presents with cough, shortness of breath, fatigue and fever, present over the past 4-5 weeks and worsening in the last two weeks despite a 7 day course of doxycycline and a short course of prednisone prior to that. Cough worse at night, and the patient reports that he cannot lie flat. He reports some swelling in his ankles and his abdomen which is diffusely tender. He has vascular congestion on his chest xray today and no h/o CAD or heart failure. Last echo was in 2010 with preserved EF at that time. He also reports some mucous production, and shortness of breath is more surrounding episodes of coughing. He reports nausea and vomiting stating he "can't keep anything down." Last food was a piece of pie last night that he threw up. He has a sore throat. He denies any sinus congestion, chest pain, diarrhea, blood per rectum, or other symptoms at this time. His INR is 1.5, PLT are 67, and WBC is 29K with 22% monoblasts and 31% monocytes on peripheral smear. The patient was tested for COVID-19 two weeks ago and was negative. I discussed the results of the smear with Hematology at [facility], who recommend transfer. Admission Exam Per Admitting Provider CONSTITUTIONAL: WNWD, vitals as above, generally well-appearing EYES: EOMI bilaterally, PERRL, normal conjunctivae, no scleral icterus ENT: external ear and nose normal, oropharynx clear with some erythema but no exudates. Mucous membranes moist. NECK: trachea midline, no lymphadenopathy RESPIRATORY: Crackles at bases bilaterally, no wheezing or rales. Increased respiratory effort and conversational dyspnea present. CARDIOVASCULAR: regular rate and rhythm, S1 and 2 heard without murmurs, gallops or rubs, no JVD, no peripheral edema CHEST: inspection of chest was normal GASTROINTESTINAL: soft, diffusely tender, no guarding or distension MUSCULOSKELETAL: strength 5/5 throughout, head is normocephalic and atraumatic SKIN: warm and dry NEUROLOGIC: No facial palsy, no dysarthria. CN 2-12 grossly intact, no sensory deficit, normal cognition, normal speech, no tremor, no gross focal deficits. PSYCHIATRIC: alert cooperative and oriented to person, place and time. 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 Acute respiratory failure with hypoxia 2/2 possible pneumonia vs acute heart failure Hypokalemia Hypomagnesemia Coagulopathy Thrombocytopenia Discharge Data Allergies Allergy/AdvReac Type Severity Reaction Status Date / Time No Known Allergies Allergy Verified 04/03/20 09:50 Consultations 04/03/20 10:51 ED Decision to Admit Stat 04/03/20 13:42 Consult Case Management - Discharge Planning Routine 04/03/20 14:20 Burn CD for patient Stat Ordered Studies 04/03/20 13:30 US venous doppler LE Stat Hospital Course (1) Acute respiratory insufficiency: (2) Acute leukemia: (3) Acute hypokalemia: (4) Acute diastolic heart failure: (5) Cirrhosis: (6) COVID-19 ruled out: (7) Coagulopathy: 85 yo M presented to the ER with constitutional symptoms for the past 4-5 weeks including intermittent fevers, GI upset and occasional vomiting, severe fatigue and dyspnea with occasional coughing. He reported significant orthopnea, and with pulmonary congestion seen on CXR imaging he was given furosemide 20mg IV with good diuresis. This improved his tachypnea from 45 breaths per minute to around 35 breaths per minute. He was placed on BIPAP and clinically reported improvement after a couple of hours, but remained tachypneic. Cefepime was started empirically for questionable pneumonia, and was continued. As the questionable infiltrative vs atelectasis vs edema changes seen on xray were not as impressive as the tachypnea, COVID-19 and PE were entertained as alternative contributors. COVID-19 was ruled out for a second time now in two weeks. He did have lower leg dopplers performed with no evidence of DVT, but did not have a chance to have chest imaging prior to transfer. Therefore, PE may still be a consideration for the receiving facility. Initial CBC revealed an elevated WBC count of 29K and manual peripheral smear reviewed by pathology revealed 22% monoblasts with 31% monocytes. This was suggestive of CMML, and flow cytometry and further studies were pending at the time of discharge. Additional labwork included uric acid and LDH which were elevated. In this clinical setting, this was concerning for a potentially developing tumor lysis syndrome. Rasburicase is not offered at this facility, however, he was treated with renally-dosed allopurinol. He was also given hydroxyurea to treat any hyperviscosity from the elevated white blood cell count. He was found to be in acute kidney injury, however, in the setting of tachypnea and pulmonary congestion, additional fluids were avoided. I did review this possibility peripherally with the sponge press operator shipping lead person and the decision was made to avoid intubation while trying other conservative measures. If his respiratory status does not improve, he may require temporary intubation for acute respiratory failure. Other concerns to note include hypokalemia in the setting of vomiting and hypomagnesemia. Both potassium and magnesium were replaced. Furthermore, the low potassium points away from TLS. Additionally, the patient has thrombocytopenia and a coagulopathy with INR 1.5, not on anticoagulation. DIC was entertained, however, fibrinogen was normal. He notably has a h/o cirrhosis diagnosed on imaging in the recent past that has not been worked up as outpatient. These may be reflective of a more chronic liver disease. 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 His daughter, Katharine Munson, was updated and all questions were answered. 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 Acute respiratory failure with hypoxia 2/2 possible pneumonia vs acute heart failure Hypokalemia Hypomagnesemia Condition on Discharge: Critical Activity: Resume your previous activity Non-emergency contact: Primary Care Provider Call non-emergency contact if: you have any medication questions, your symptoms worsen, your pain is not controlled, your pain is worsening, your pain is unusual for you, your pain is concerning for you and you have a fever Follow-up/Referrals: Devi Smith PA-C [Primary Care Provider] - Diet: Low Sodium (2gm) Addtl Attending Provider Instructions: You are being transferred to a tertiary care facility for further workup and treatment of your condition. Please ensure close followup with your primary care physician within one week of discharge from this facility. It was a pleasure taking care of you! Please call if you have any questions or problems. You can reach a [facility] hospitalist on duty at [facility] 24 hours a day by calling [phone]. Take care of yourself. DO [facility] Pending Studies at Discharge: Yes Stand-Alone Forms: My [facility] Skilled Items Patient informed of condition?: Yes DNR: No Discharge Level of Care: Other Communicable Disease: No Discharge Prognosis: Deteriorating Lines: Peripheral IV Urinary Catheter: No Medications and DC Order Prescriptions: Continued pantoprazole 40 mg Tablet,Delayed Release (Dr/Ec) 40 mg PO DAILY RF: 0 folic acid 1 mg Tablet 1 mg PO DAILY RF: 0 amlodipine 10 mg tablet 10 mg PO DAILY RF: 0 Discharge Orders: Discharge Order (Routine); Ordered 04/03/20 Ordered By: Mary Marroquin Admission Data Admit Date/Time: 04/03/20 11:57 Attending Provider: Mary Marroquin Admit Provider: Mary Marroquin Primary Care Provider: Devi Smith Other Providers: Mary Marroquin Other Interventions: Discharge Summary Assessment (RN) Last Done: 04/03/20 19:02
== END 2020-04-03 20:35 | disposition short-term general hospital (02) | DRG 840 ==
LOC: ED 08:21 → 2S 11:57